=== PATIENT | female | born 1960 | race Caucasian/White ===

== ENCOUNTER 2017-08-16 11:11 | Inpatient (IN) | payer OTHER ==
[2017-08-16] VITALS (7 sets, daily range): BP systolic 74–177; BP diastolic 42–86
[~2017-08-16] VITALS: Ht 162.5 cm; Wt 83.3 kg
--- NOTE | ~2017-08-16 | EKG ---
[place], [place] ELECTROCARDIOGRAM REPORT NAME: NAV WALKER UNIT #: [id number] ROOM: 412 DOCTOR: ALVIN CASTRO,KALEE BIRTHDATE: [birth year] DOS: 08/16/2017 TIME: 1454 hours. IMPRESSION: 1. Sinus rhythm. 2. Normal QT interval. 3. No ischemic changes. KALEE ESQUIVEL MD CM:EKGRPT:ELECTROCARDIOGRAM REPORT 1200 1213 KALEE ESQUIVEL MD
--- NOTE | ~2017-08-16 | EKG ---
[place], [place] ELECTROCARDIOGRAM REPORT NAME: NAV WALKER UNIT #: [id number] ROOM: 412 DOCTOR: ALVIN CASTRO,KALEE BIRTHDATE: [birth year] DOS: 08/16/2017 TIME: 1113 hours IMPRESSION: 1. Sinus rhythm. 2. Nonspecific ST-T changes. 3. Normal QT interval. KALEE ESQUIVEL MD CM:EKGRPT:ELECTROCARDIOGRAM REPORT 1201 1216 KALEE ESQUIVEL MD
--- NOTE | ~2017-08-16 | CON ---
[place], [place] REPORT OF CONSULTATION NAME: NAV WALKER UNIT #: [id number] ROOM: 412 DOCTOR: ALVIN CASTRO,KALEE BIRTHDATE: [birth year] DOS: 08/16/2017 REASON FOR CONSULTATION: Chest pain. CONSULTING PHYSICIAN: Dr. Rabago. HISTORY OF PRESENT ILLNESS: The patient is a 57-year-old patient who came to the Emergency Room with chest pain. She complained of some midsternal pain like a squeezing pain at rest, started about 2 weeks ago. This is more or less constant pain with waxing and waning, but this was not completely resolved except sometimes gets better, but it is there for the last 2 weeks. She denies associated nausea, diaphoresis, or shortness of breath. This pain has no radiation. No dizziness or syncope. This pain did not get any worse with activity. She also complained of occasional facial numbness during her anxiety attack. No palpitations or dizziness. No nausea, vomiting, diarrhea. No headaches. No fever and chills. No cough or hemoptysis. No hematuria or dysuria. His blood pressure medications and Xanax were adjusted by her family physician. REVIEW OF SYSTEMS: Review of the 8 systems negative except as mentioned above. PAST MEDICAL HISTORY: 1. Hypertension. 2. Anxiety. 3. Dyslipidemia. 4. Non-morbid obesity. 5. Dyslipidemia. 6. Overactive bladder. PAST SURGICAL HISTORY: 1. History of breast lump resection. 2. Excision of the right lobe of the thyroid. 3. Tonsillectomy. SOCIAL HISTORY: The patient does not drink alcohol or use illicit drugs, history of tobacco use, but quit smoking about a year and half ago. FAMILY HISTORY: History of strokes in the father, at the age 76. Mother at the age of 51 from scleroderma. ALLERGIES: THE PATIENT IS ALLERGIC TO IODINE which causes severe anaphylaxis, per chart. HOME MEDICATIONS: Reviewed. PHYSICAL EXAMINATION: VITAL SIGNS: Blood pressure 106/56, pulse 82, respiratory rate 18, weight 83 kilos, BMI 31.6. GENERAL: Alert, comfortable, in no acute distress. [place], [place] REPORT OF CONSULTATION NAME: NAV WALKER UNIT #: [id number] ROOM: 412 DOCTOR: ALVIN CASTRO,KALEE BIRTHDATE: [birth year] HEAD AND NECK: Supple, no distended neck veins, no carotid bruit. CHEST: Symmetrical, nontender. LUNGS: Clear to auscultation bilaterally. HEART: Regular rhythm, no S3, no palpable thrills. ABDOMEN: Obese, nontender. Bowel sounds normal. EXTREMITIES: Showed no edema. Distal pulses are palpable. SKIN: Warm and dry. No cyanosis, no clubbing. NEUROLOGIC: The patient is alert, oriented. No focal neurologic deficit. RECTAL: Deferred. GENITOURINARY: Deferred. REVIEW OF THE DIAGNOSTIC TESTS: EKG shows sinus rhythm. CBC and chemistry reviewed. Potassium was 3.1. IMPRESSION: 1. Chest pain, atypical, myocardial infarction ruled out. 2. Mild hypokalemia, which is being replaced, supplemented. 3. Hypertension, stable. 4. Chronic kidney disease. 5. Rule out ____. 6. Non-morbid obesity. RECOMMENDATIONS: 1. She denies any further chest pain. Initial blood pressures and heart rates are stable. 2. She can be discharged home today and recommend outpatient stress test due to her coronary artery disease risk factors. The patient advised to come back to the Emergency Room if she develops recurrent exertional chest pains. Thank you, Dr. Rabago, for asking us to evaluate this patient. KALEE ESQUIVEL MD CM:CONSTR:REPORT OF CONSULTATION 1737 [id number]/16/[id number] interface
[~2017-08-16 11:11] MED LIST: AMOXICILLIN500 MG PO; CELEXA20 MG PO; DAYPRO600 M1 PO; DIFLUCAN150 MG PO; LISINOPRIL20 MG PO; MOTRIN800 MG PO; TOVIAZ4 MG PO; ZOCOR20 MG PO
[2017-08-16 11:39] LABS: BASO % 0.3 % (0.0-1.0); EOS % 0.4 % (1.0-4.0); HEMATOCRIT 37.7 % (37.0-47.0); LYMPH # 2.1 10*3/uL (1.3-4.4); MEAN CELL VOLUME 90.8 fl (81.0-99.0); MEAN CORPUSCULAR HGB 31.3 pg (27.0-31.0); MEAN CORPUSCULAR HGB CONC 34.5 g/dl (33.0-37.0); MEAN PLATELET VOLUME 9.9 fl (9.6-12.3); MONO # 0.5 10*3/uL (0.1-1.0); MONO % 6.2 % (3.0-9.0); PLATELET COUNT AUTOMATED 365 10*3/uL (130-400); RED BLOOD COUNT 4.15 10*6/uL (4.10-5.10); RED CELL DISTRI WIDTH 12.3 % (0-14.5); WHITE BLOOD COUNT 7.6 10*3/uL (4.8-10.8)
--- NOTE | 2017-08-16 11:40 | NUR ---
AUTOMATIC BP 74/53, RIGHT ARM. MANUAL BP 98/64, LEFT ARM. NITRO-BID REMOVED FROM LEFT ARM ORDERED BY .
[2017-08-16 11:48] LABS: ACT PARTIAL THROMBO TIME 22.4 SECONDS (20.8-31.5)
[2017-08-16] MEDS ORDERED: PROZAC40 M1 PO (11:51)
[2017-08-16] MEDS ORDERED: DITROPAN XL5 MG PO (11:52)
[2017-08-16] MEDS ORDERED: NAPROXEN500 MG PO (11:52)
[2017-08-16] MEDS ORDERED: ATIVAN0.5 MG PO (11:54)
[2017-08-16] MEDS ORDERED: HYZAAR 50-12.51 EACH PO (11:55)
[2017-08-16] MEDS ORDERED: TOPAMAX50 MG PO (11:55)
[2017-08-16 11:56] LABS: ALBUMIN 4.2 gm/dl (3.1-4.5); ALKALINE PHOSPHATASE 116 U/L (45-117); BUN 22 mg/dl (7-24); CHLORIDE 102 mmol/L (98-107); CREATININE 1.29 mg/dL (0.55-1.02); POTASSIUM 3.1 mmol/L (3.5-5.1); SGOT/AST 18 IU/L (3-35); SGPT/ALT 25 U/L (12-78); SODIUM 138 mmol/L (136-145); TOTAL PROTEIN 7.5 gm/dL (6.4-8.2)
[2017-08-16 11:58] LABS: TROPONIN I < 0.015 ng/ml (<0.045)
--- NOTE | 2017-08-16 12:00 | NUR ---
PATIENT STATES THAT ATIVAN HAS HELPED HER TO "CALM DOWN AND STOP CRYING." ALSO STATES THAT HER "CHEST AND FACE ARE STILL TINGLING." NOTIFIED.
--- NOTE | 2017-08-16 13:25 | NUR ---
Time: 1324 A 57 year old FEMALE admitted to 4E under services of ALICJA WYMAN DO. Pt. arrived via bed from ER. Chief complaint: CHEST PAIN. CHAI ZAMBRANO
--- NOTE | 2017-08-16 15:01 | NUR ---
DR ESQUIVEL WAS NOTIFIED OF THE NEW CONSULT FOR CHEST PAIN.
--- NOTE | 2017-08-16 17:35 | NUR ---
Discharge instructions reviewed with patient/family. Patient receptive and verbalizes understanding. Follow-up care arranged. Written instructions given to patient/family. JEFRY VANCE
== END 2017-08-16 17:35 | disposition home or self-care (01) | DRG 313 ==
LOC: ED 11:11 → EDHOLD 11:39 → 4E 11:39
PROVIDERS: Emergency Medicine; ADMIT Internal Medicine
DX: R07.89 Other chest pain (principal); E83.41 Hypermagnesemia; E66.8 Other obesity; E87.6 Hypokalemia; E78.5 Hyperlipidemia, unspecified; R73.9 Hyperglycemia, unspecified; N32.81 Overactive bladder; F41.9 Anxiety disorder, unspecified; I12.9 Hypertensive chronic kidney disease with stage 1 through stage 4 chronic kidney disease, or unspecified chronic kidney disease; G43.909 Migraine, unspecified, not intractable, without status migrainosus; N18.9 Chronic kidney disease, unspecified; Z68.31 Body mass index [BMI] 31.0-31.9, adult; Z91.041 Radiographic dye allergy status; Z79.899 Other long term (current) drug therapy; Z87.01 Personal history of pneumonia (recurrent); Z82.3 Family history of stroke; Z83.3 Family history of diabetes mellitus; Z98.51 Tubal ligation status; Z95.1 Presence of aortocoronary bypass graft

== ENCOUNTER 2017-11-21 10:56 | Inpatient (IN) | payer OTHER ==
[~2017-11-21] VITALS: Ht 162.6 cm
--- NOTE | ~2017-11-21 | EKG ---
[place], [place] ELECTROCARDIOGRAM REPORT NAME: NAV WALKER UNIT #: [id number] ROOM: [facility] DOCTOR: ALVIN CASTRO,KALEE BIRTHDATE: [birth year] DOS: 11/21/2017 TIME: 1124 hours IMPRESSION: 1. Sinus rhythm. 2. Borderline left atrial enlargement. 3. Low voltage in the limb leads. 4. Normal QT interval. KALEE ESQUIVEL MD CM:EKGRPT:ELECTROCARDIOGRAM REPORT 0845 0921 KALEE ESQUIVEL MD
[~2017-11-21 10:56] MED LIST changes: +ATIVAN0.5 MG PO; +DITROPAN XL5 MG PO; +HYZAAR 50-12.51 EACH PO; +NAPROXEN500 MG PO; +PROZAC40 M1 PO; +TOPAMAX50 MG PO
[2017-11-21 11:09] VITALS: BP 140/80
[2017-11-21 11:33] LABS: BASO % 0.5 % (0.0-1.0); EOS # 0.1 10*3/uL (0.0-0.4); EOS % 1.2 % (1.0-4.0); HEMATOCRIT 37.3 % (37.0-47.0); LYMPH # 1.6 10*3/uL (1.3-4.4); LYMPH % 27.9 % (27.0-41.0); MEAN CELL VOLUME 91.9 fl (81.0-99.0); MEAN CORPUSCULAR HGB 29.6 pg (27.0-31.0); MEAN CORPUSCULAR HGB CONC 32.2 g/dl (33.0-37.0); MONO # 0.4 10*3/uL (0.1-1.0); MONO % 7.1 % (3.0-9.0); NEUT # 3.6 10*3/uL (2.3-7.9); NEUT % 63.1 % (47.0-73.0); PLATELET COUNT AUTOMATED 313 10*3/uL (130-400); RED BLOOD COUNT 4.06 10*6/uL (4.10-5.10); RED CELL DISTRI WIDTH 13.5 % (0-14.5); WHITE BLOOD COUNT 5.7 10*3/uL (4.8-10.8)
[2017-11-21 11:42] LABS: ACT PARTIAL THROMBO TIME 22.5 SECONDS (20.8-31.5)
[2017-11-21 11:47] LABS: ALBUMIN 3.7 gm/dl (3.1-4.5); ALKALINE PHOSPHATASE 89 U/L (45-117); BUN 17 mg/dl (7-24); CHLORIDE 103 mmol/L (98-107); CREATININE 0.82 mg/dL (0.55-1.02); LIPASE 205 U/L (73-393); POTASSIUM 2.8 mmol/L (3.5-5.1); SGOT/AST 20 IU/L (3-35); SGPT/ALT 25 U/L (12-78); SODIUM 138 mmol/L (136-145); TOTAL PROTEIN 7.1 gm/dL (6.4-8.2)
[2017-11-21 11:48] LABS: TROPONIN I < 0.015 ng/ml (<0.045)
[2017-11-21 12:57] VITALS: BP 134/80
[2017-11-21] MEDS ORDERED: ASPIRIN ADULT L81 M1 PO (13:15)
[2017-11-21 13:38] VITALS: BP 122/68
[2017-11-21 13:45] VITALS: BP 122/68
[2017-11-21] MEDS ORDERED: OMEPRAZOLE MAGN20 M1 PO (13:47)
[2017-11-21 15:23] LABS: BILIRUBIN NEGATIVE (NEGATIVE); BLOOD NEGATIVE (NEGATIVE); CLARITY CLEAR (CLEAR); COLOR YELLOW (YELLOW); GLUCOSE NEGATIVE (NEGATIVE); KETONE NEGATIVE (NEGATIVE); LEUKO ESTERASE 3+ (NEGATIVE); NITRITE NEGATIVE (NEGATIVE); PH 7.5 (5.0-9.0); UROBILINOGEN 0.2 E.U./dl (0.2-1.0)
[2017-11-21 15:58] LABS: BACTERIA 3+; EPITHELIAL CELLS 15-20; RBC 0-2 rbc/hpf (0-2); WBC 21-30 wbc/hpf (0-5)
[2017-11-21 16:00] VITALS: BP 119/60
[2017-11-21 20:00] VITALS: BP 107/90
[2017-11-22] VITALS: BP 103/53
[2017-11-22 06:34] LABS: HEMATOCRIT 35.3 % (37.0-47.0); HEMOGLOBIN 11.2 g/dl (12.0-16.0); MEAN CELL VOLUME 94.4 fl (81.0-99.0); MEAN CORPUSCULAR HGB 29.9 pg (27.0-31.0); MEAN CORPUSCULAR HGB CONC 31.7 g/dl (33.0-37.0); MEAN PLATELET VOLUME 10.2 fl (9.6-12.3); PLATELET COUNT AUTOMATED 284 10*3/uL (130-400); RED BLOOD COUNT 3.74 10*6/uL (4.10-5.10); RED CELL DISTRI WIDTH 13.8 % (0-14.5); WHITE BLOOD COUNT 5.5 10*3/uL (4.8-10.8)
[2017-11-22 06:52] LABS: ALBUMIN 3.1 gm/dl (3.1-4.5); ALKALINE PHOSPHATASE 80 U/L (45-117); BUN 16 mg/dl (7-24); CHLORIDE 107 mmol/L (98-107); CHOLESTEROL 172 mg/dL (<200); CREATININE 0.76 mg/dL (0.55-1.02); FREE T4 1.24 ng/dl (0.76-1.46); HDL CHOLESTEROL 47 mg/dl (40-60); LDL CHOLESTEROL 91 mg/dL (9-159); PHOSPHOROUS 3.2 mg/dL (2.5-4.9); POTASSIUM 3.5 mmol/L (3.5-5.1); SGOT/AST 15 IU/L (3-35); SGPT/ALT 25 U/L (12-78); SODIUM 141 mmol/L (136-145); TOTAL PROTEIN 6.4 gm/dL (6.4-8.2); TRIGLYCERIDES 169 mg/dl (<150); VLDL CHOLESTEROL 34 mg/dL (6-40)
[2017-11-22 07:58] LABS: VITAMIN D, 25-HYDROXY 13.8 ng/mL (30-100)
[2017-11-22 08:00] VITALS: BP 108/50
[2017-11-22] MEDS ORDERED: CIPRO500 MG PO (10:11)
[2017-11-22] MEDS ORDERED: LOSARTAN POTASS50 M1 PO (10:11)
== END 2017-11-22 11:28 | disposition home or self-care (01) | DRG 641 ==
LOC: ED 10:56 → EDHOLD 12:33 → 4E 12:42
PROVIDERS: Emergency Medicine; Family Medicine
DX: E87.6 Hypokalemia (principal); E83.41 Hypermagnesemia; E83.51 Hypocalcemia; E78.5 Hyperlipidemia, unspecified; I10 Essential (primary) hypertension; F41.9 Anxiety disorder, unspecified; R35.0 Frequency of micturition; N32.81 Overactive bladder; R73.9 Hyperglycemia, unspecified; G43.909 Migraine, unspecified, not intractable, without status migrainosus; Z98.51 Tubal ligation status; Z88.2 Allergy status to sulfonamides; Z79.899 Other long term (current) drug therapy; Z79.82 Long term (current) use of aspirin

== ENCOUNTER 2019-09-16 08:40 | Emergency (ER) | payer OTHER ==
[~2019-09-16] VITALS: Ht 162.5 cm; Wt 74.8 kg
[~2019-09-16 08:40] MED LIST changes: +ASPIRIN ADULT L81 M1 PO; +CIPRO500 MG PO; +LOSARTAN POTASS50 M1 PO; +OMEPRAZOLE MAGN20 M1 PO
[2019-09-16 09:10] LABS: BASO % 0.4 % (0.0-1.0); EOS % 0.3 % (1.0-4.0); HEMATOCRIT 40.2 % (37.0-47.0); HEMOGLOBIN 13.1 g/dl (12.0-16.0); LYMPH # 1.6 10*3/uL (1.3-4.4); LYMPH % 14.3 % (27.0-41.0); MEAN CELL VOLUME 93.1 fl (81.0-99.0); MEAN CORPUSCULAR HGB 30.3 pg (27.0-31.0); MEAN CORPUSCULAR HGB CONC 32.6 g/dl (33.0-37.0); MEAN PLATELET VOLUME 9.8 fl (9.6-12.3); NEUT # 8.4 10*3/uL (2.3-7.9); NEUT % 75.5 % (47.0-73.0); PLATELET COUNT AUTOMATED 664 10*3/uL (130-400); RED BLOOD COUNT 4.32 10*6/uL (4.10-5.10); RED CELL DISTRI WIDTH 11.9 % (0-14.5); WHITE BLOOD COUNT 11.1 10*3/uL (4.8-10.8)
[2019-09-16 09:21] LABS: ACT PARTIAL THROMBO TIME 51.4 SECONDS (20.0-32.1); INTERNATIONAL NORM RATIO 1.1 (2.0-3.5)
[2019-09-16 09:23] LABS: ALBUMIN 2.9 gm/dl (3.1-4.5); CREATININE 1.18 mg/dL (0.55-1.02); POTASSIUM 3.4 mmol/L (3.5-5.1); TOTAL PROTEIN 7.8 gm/dL (6.4-8.2)
[2019-09-16 12:51] LABS: BILIRUBIN 1+ (NEGATIVE); BLOOD 1+ (NEGATIVE); CLARITY SL CLOUDY (CLEAR); COLOR YELLOW (YELLOW); GLUCOSE NEGATIVE (NEGATIVE); KETONE TRACE (NEGATIVE); LEUKO ESTERASE 1+ (NEGATIVE); NITRITE NEGATIVE (NEGATIVE); SPECIFIC GRAVITY 1.015 (1.005-1.030); UROBILINOGEN 0.2 E.U./dl (0.2-1.0)
[2019-09-16 13:13] LABS: WBC TNTC wbc/hpf (0-5)
[2019-09-16 13:27] LABS: BACTERIA 3+
[2019-09-16 13:28] LABS: RBC 16-20 rbc/hpf (0-2)
[2019-09-16] MEDS ORDERED: SEPTDS PO (13:31)
[2019-09-16] MEDS ORDERED: PYRIDIUM200 M1 PO (13:31)
== END 2019-09-16 13:41 | disposition home or self-care (01) ==
LOC: ED 08:40
PROVIDERS: Emergency Medicine
DX: N39.0 Urinary tract infection, site not specified (principal); K64.5 Perianal venous thrombosis; D47.3 Essential (hemorrhagic) thrombocythemia; I10 Essential (primary) hypertension; E78.00 Pure hypercholesterolemia, unspecified; F41.9 Anxiety disorder, unspecified; K21.9 Gastro-esophageal reflux disease without esophagitis; F17.200 Nicotine dependence, unspecified, uncomplicated; Z91.041 Radiographic dye allergy status; Z91.013 Allergy to seafood; Z79.899 Other long term (current) drug therapy; Z79.82 Long term (current) use of aspirin

== ENCOUNTER → 2020-06-18 | Outpatient (CLI) | payer OTHER ==
[~2020-06-18] MED LIST changes: +PYRIDIUM200 M1 PO; +SEPTDS PO
[2020-06-19 16:09] LABS: ATYPICAL PANCA <1:20 titer (Neg:<1:20)
[2020-06-20 13:09] LABS: SACCHAROMYCES CEREVISIAE IGA <20.0 Units (0.0-24.9)
== END | disposition home or self-care (01) ==
LOC: LAB 08:24
PROVIDERS: ATTEND Internal Medicine Gastroenterology
DX: K52.9 Noninfective gastroenteritis and colitis, unspecified (principal)

== ENCOUNTER → 2020-09-10 | Outpatient (CLI) | payer OTHER ==
[~2020-09-10] MED LIST changes: +PERCOCET 5-3251 EACH PO
== END | disposition home or self-care (01) ==
LOC: COVID19 16:15
PROVIDERS: ATTEND Internal Medicine Gastroenterology
DX: Z01.818 Encounter for other preprocedural examination (principal); Z20.822 Contact with and (suspected) exposure to COVID-19

== ENCOUNTER 2020-11-13 14:33 | Emergency (ER) | payer OTHER ==
[~2020-11-13] VITALS: Ht 162.5 cm; Wt 88.5 kg
[~2020-11-13 14:33] MED LIST changes: -PERCOCET 5-3251 EACH PO
[2020-11-13] MEDS ORDERED: PERCOCET 5-3251 EACH PO (16:47)
== END 2020-11-13 17:09 | disposition home or self-care (01) ==
LOC: ED 14:33
DX: S52.501A Unspecified fracture of the lower end of right radius, initial encounter for closed fracture (principal); S80.211A Abrasion, right knee, initial encounter; F17.290 Nicotine dependence, other tobacco product, uncomplicated; Z91.041 Radiographic dye allergy status; Z91.013 Allergy to seafood; Z79.899 Other long term (current) drug therapy; Z79.2 Long term (current) use of antibiotics; Z79.82 Long term (current) use of aspirin; Z90.89 Acquired absence of other organs; Z98.51 Tubal ligation status; W18.09XA Striking against other object with subsequent fall, initial encounter; Y93.89 Activity, other specified; Y92.488 Other paved roadways as the place of occurrence of the external cause; Y99.8 Other external cause status

== ENCOUNTER → 2021-07-17 | Outpatient (CLI) | payer OTHER ==
[~2021-07-17] MED LIST changes: +PERCOCET 5-3251 EACH PO
== END | disposition home or self-care (01) ==
LOC: LAB 07:18
PROVIDERS: ATTEND Nurse Practitioner Family
DX: K52.9 Noninfective gastroenteritis and colitis, unspecified (principal)

== ENCOUNTER 2021-07-31 15:24 | Emergency (ER) | payer OTHER ==
[~2021-07-31] VITALS: Ht 162.5 cm; Wt 78.5 kg
[2021-07-31 16:19] LABS: BASO % 0.2 % (0.0-1.0); HEMATOCRIT 43.4 % (37.0-47.0); LYMPH # 1.1 10*3/uL (1.3-4.4); LYMPH % 8.5 % (27.0-41.0); MEAN CELL VOLUME 100.9 fl (81.0-99.0); MEAN CORPUSCULAR HGB 32.8 pg (27.0-31.0); MEAN CORPUSCULAR HGB CONC 32.5 g/dl (33.0-37.0); MEAN PLATELET VOLUME 10.3 fl (9.6-12.3); MONO # 0.8 10*3/uL (0.1-1.0); MONO % 5.7 % (3.0-9.0); NEUT # 11.3 10*3/uL (2.3-7.9); NEUT % 85.2 % (47.0-73.0); PLATELET COUNT AUTOMATED 342 10*3/uL (130-400); RED CELL DISTRI WIDTH 12.3 % (0-14.5); WHITE BLOOD COUNT 13.2 10*3/uL (4.8-10.8)
[2021-07-31 16:45] LABS: ALBUMIN 3.4 gm/dl (3.1-4.5); CREATININE 1.13 mg/dL (0.55-1.02); POTASSIUM 3.7 mmol/L (3.5-5.1); TOTAL PROTEIN 7.4 gm/dL (6.4-8.2)
[2021-07-31 17:01] LABS: BILIRUBIN Negative (Negative); BLOOD 3+ (Negative); CLARITY Cloudy (Clear); COLOR Yellow (Yellow); GLUCOSE Negative (Negative); KETONE Trace (Negative); LEUKO ESTERASE 2+ (Negative); NITRITE Negative (Negative); UROBILINOGEN 0.2 E.U./dl (0.0-1.0)
[2021-07-31 17:34] LABS: BACTERIA 2+; EPITHELIAL CELLS 41-50; RBC TNTC rbc/hpf (0-2); WBC TNTC wbc/hpf (0-5)
== END 2021-07-31 22:11 | disposition short-term general hospital (02) ==
LOC: ED 15:24
PROVIDERS: Physician Assistant
DX: N13.2 Hydronephrosis with renal and ureteral calculous obstruction (principal); Z91.041 Radiographic dye allergy status; Z91.013 Allergy to seafood; Z79.899 Other long term (current) drug therapy; Z79.82 Long term (current) use of aspirin

== ENCOUNTER → 2021-11-25 | Outpatient (CLI) | payer OTHER | END | disposition home or self-care (01) | LOC: LAB 07:20 | PROVIDERS: ATTEND Internal Medicine Gastroenterology | DX: K50.10 Crohn's disease of large intestine without complications (principal) ==

== ENCOUNTER 2022-07-16 14:42 | Inpatient (IN) | payer OTHER ==
[~2022-07-16] VITALS: Ht 162.5 cm; Wt 66.9 kg
[2022-07-16 15:01] VITALS: BP 112/60
[2022-07-16 15:20] LABS: BASO # 0.1 10*3/uL (0.0-0.1); BASO % 0.5 % (0.0-1.0); EOS # 0.1 10*3/uL (0.0-0.4); EOS % 0.9 % (1.0-4.0); HEMATOCRIT 41.7 % (37.0-47.0); LYMPH # 2.1 10*3/uL (1.3-4.4); LYMPH % 19.6 % (27.0-41.0); MEAN CELL VOLUME 97.4 fl (81.0-99.0); MEAN CORPUSCULAR HGB 31.8 pg (27.0-31.0); MEAN CORPUSCULAR HGB CONC 32.6 g/dl (33.0-37.0); MEAN PLATELET VOLUME 9.9 fl (9.6-12.3); MONO # 0.7 10*3/uL (0.1-1.0); MONO % 6.6 % (3.0-9.0); NEUT # 7.7 10*3/uL (2.3-7.9); NEUT % 72.2 % (47.0-73.0); PLATELET COUNT AUTOMATED 400 10*3/uL (130-400); RED BLOOD COUNT 4.28 10*6/uL (4.10-5.10); RED CELL DISTRI WIDTH 12.6 % (0-14.5); WHITE BLOOD COUNT 10.6 10*3/uL (4.8-10.8)
[2022-07-16 15:34] LABS: ACT PARTIAL THROMBO TIME 30.8 SECONDS (20.0-32.1)
[2022-07-16 15:36] LABS: ALKALINE PHOSPHATASE 53 U/L (45-117); BUN 15 mg/dl (7-24); CHLORIDE 112 mmol/L (98-107); CREATININE 0.91 mg/dL (0.55-1.02); LIPASE 148 U/L (73-393); POTASSIUM 3.6 mmol/L (3.5-5.1); SGPT/ALT 48 U/L (12-78); SODIUM 140 mmol/L (136-145); TOTAL PROTEIN 7.2 gm/dL (6.4-8.2)
[2022-07-16 16:40] VITALS: BP 114/70
[2022-07-16 17:58] VITALS: BP 118/70
[2022-07-16 18:00] VITALS: BP 131/55
[2022-07-16] MEDS ORDERED: BENICAR20 MG PO (18:48)
[2022-07-16] MEDS ORDERED: FENOFIBRATE160 MG PO (18:51)
[2022-07-16] MEDS ORDERED: BUDESONIDE EC3 MG PO (18:51)
[2022-07-16] MEDS ORDERED: REMERON15 M2 PO (18:52)
[2022-07-16] MEDS ORDERED: ZOLOFT100 MG PO (18:52)
[2022-07-16] MEDS ORDERED: WELLBUTRIN SR150 MG PO (18:52)
[2022-07-16] MEDS ORDERED: NEXIUM40 MG PO (18:53)
[2022-07-16 20:00] VITALS: BP 91/62
[2022-07-17] VITALS: BP 90/50
[2022-07-17 05:00] LABS: BUN 16 mg/dl (7-24); CHLORIDE 111 mmol/L (98-107); CHOLESTEROL 162 mg/dL (<200); CREATININE 0.84 mg/dL (0.55-1.02); POTASSIUM 3.4 mmol/L (3.5-5.1); SGPT/ALT 261 U/L (12-78); SODIUM 140 mmol/L (136-145)
[2022-07-17 05:02] LABS: ALKALINE PHOSPHATASE 75 U/L (45-117); FREE T4 1.33 ng/dl (0.76-1.46); LDL CHOLESTEROL 80 mg/dL (9-159); TOTAL PROTEIN 6.4 gm/dL (6.4-8.2); TRIGLYCERIDES 225 mg/dl (<150)
[2022-07-17 05:05] LABS: THYROID STIM HORMONE (HS) 0.854 uIU/ml (0.358-4.75)
[2022-07-17 06:14] LABS: BASO % 0.4 % (0.0-1.0); EOS # 0.1 10*3/uL (0.0-0.4); EOS % 1.3 % (1.0-4.0); HEMATOCRIT 37.4 % (37.0-47.0); LYMPH # 1.7 10*3/uL (1.3-4.4); LYMPH % 30.2 % (27.0-41.0); MEAN CELL VOLUME 96.1 fl (81.0-99.0); MEAN CORPUSCULAR HGB 31.4 pg (27.0-31.0); MEAN CORPUSCULAR HGB CONC 32.6 g/dl (33.0-37.0); MEAN PLATELET VOLUME 10.3 fl (9.6-12.3); MONO # 0.4 10*3/uL (0.1-1.0); MONO % 7.5 % (3.0-9.0); NEUT # 3.4 10*3/uL (2.3-7.9); NEUT % 60.2 % (47.0-73.0); PLATELET COUNT AUTOMATED 325 10*3/uL (130-400); RED BLOOD COUNT 3.89 10*6/uL (4.10-5.10); RED CELL DISTRI WIDTH 12.6 % (0-14.5); WHITE BLOOD COUNT 5.6 10*3/uL (4.8-10.8)
[2022-07-17 06:42] VITALS: BP 110/64
[2022-07-17 08:00] VITALS: BP 101/51
[2022-07-17 12:00] VITALS: BP 117/38
== END 2022-07-17 15:02 | disposition home or self-care (01) | DRG 313 ==
LOC: ED 14:42 → EDHOLD 17:07 → 5E 17:56
PROVIDERS: Emergency Medicine; Student in an Organized Health Care Education/Training Program; ADMIT Internal Medicine; ATTEND Internal Medicine
DX: R07.9 Chest pain, unspecified (principal); K50.90 Crohn's disease, unspecified, without complications; E44.1 Mild protein-calorie malnutrition; E89.0 Postprocedural hypothyroidism; I10 Essential (primary) hypertension; E78.5 Hyperlipidemia, unspecified; E66.9 Obesity, unspecified; F41.9 Anxiety disorder, unspecified; E87.8 Other disorders of electrolyte and fluid balance, not elsewhere classified; E11.65 Type 2 diabetes mellitus with hyperglycemia; E83.41 Hypermagnesemia; R74.01 Elevation of levels of liver transaminase levels; Z68.25 Body mass index [BMI] 25.0-25.9, adult; Z91.041 Radiographic dye allergy status; Z91.013 Allergy to seafood; Z98.51 Tubal ligation status; Z87.891 Personal history of nicotine dependence

== ENCOUNTER 2022-08-12 16:58 | Emergency (ER) | payer OTHER ==
[~2022-08-12] VITALS: Wt 66.2 kg
[~2022-08-12 16:58] MED LIST changes: +BENICAR20 MG PO; +BUDESONIDE EC3 MG PO; +FENOFIBRATE160 MG PO; +NEXIUM40 MG PO; +REMERON15 M2 PO; +WELLBUTRIN SR150 MG PO; +ZOLOFT100 MG PO
[2022-08-12 20:12] LABS: BASO % 0.4 % (0.0-1.0); EOS % 0.2 % (1.0-4.0); HEMATOCRIT 37.9 % (37.0-47.0); LYMPH # 1.1 10*3/uL (1.3-4.4); LYMPH % 19.3 % (27.0-41.0); MEAN CELL VOLUME 91.3 fl (81.0-99.0); MEAN CORPUSCULAR HGB 31.6 pg (27.0-31.0); MEAN CORPUSCULAR HGB CONC 34.6 g/dl (33.0-37.0); MEAN PLATELET VOLUME 9.8 fl (9.6-12.3); MONO # 0.6 10*3/uL (0.1-1.0); MONO % 9.7 % (3.0-9.0); PLATELET COUNT AUTOMATED 388 10*3/uL (130-400); RED BLOOD COUNT 4.15 10*6/uL (4.10-5.10); RED CELL DISTRI WIDTH 12.8 % (0-14.5); WHITE BLOOD COUNT 5.7 10*3/uL (4.8-10.8)
[2022-08-12 20:27] LABS: ALKALINE PHOSPHATASE 70 U/L (46-116); BUN 24 mg/dl (9-23); CHLORIDE 98 mmol/L (98-107); CREATININE 0.73 mg/dL (0.55-1.02); LIPASE 22 U/L (12-53); POTASSIUM 2.6 mmol/L (3.4-5.1); SGPT/ALT 52 U/L (10-49); SODIUM 136 mmol/L (136-145); TOTAL PROTEIN 6.2 gm/dL (6.0-8.0)
[2022-08-12 23:36] LABS: BILIRUBIN 3+ (Negative); BLOOD 1+ (Negative); CLARITY Cloudy (Clear); COLOR Dark Yellow (Yellow); GLUCOSE Negative (Negative); KETONE 1+ (Negative); LEUKO ESTERASE 2+ (Negative); NITRITE Positive (Negative)
[2022-08-12 23:45] LABS: BACTERIA 2+; FINE GRANULAR CAST 0-2; WBC 31-40 wbc/hpf (0-5)
[2022-08-13] MEDS ORDERED: ONDANSETRON4 MG SL (00:20)
[2022-08-13] MEDS ORDERED: CIPRO500 MG PO (00:20)
== END 2022-08-13 01:33 | disposition home or self-care (01) ==
LOC: ED 16:58
PROVIDERS: Physician Assistant
DX: N39.0 Urinary tract infection, site not specified (principal); N17.9 Acute kidney failure, unspecified; E44.0 Moderate protein-calorie malnutrition; E87.6 Hypokalemia; R79.89 Other specified abnormal findings of blood chemistry; Z91.041 Radiographic dye allergy status; Z91.013 Allergy to seafood; Z79.899 Other long term (current) drug therapy; Z90.89 Acquired absence of other organs; Z98.51 Tubal ligation status; Z98.890 Other specified postprocedural states

== ENCOUNTER → 2022-11-05 | Outpatient (CLI) | payer OTHER ==
[~2022-11-05] MED LIST changes: +ONDANSETRON4 MG SL
[2022-11-05 09:36] LABS: BASO % 0.5 % (0.0-1.0); EOS # 0.2 10*3/uL (0.0-0.4); EOS % 2.6 % (1.0-4.0); HEMATOCRIT 42.5 % (37.0-47.0); LYMPH # 2.1 10*3/uL (1.3-4.4); LYMPH % 33.2 % (27.0-41.0); MEAN CELL VOLUME 99.3 fl (81.0-99.0); MEAN CORPUSCULAR HGB 31.1 pg (27.0-31.0); MEAN CORPUSCULAR HGB CONC 31.3 g/dl (33.0-37.0); MEAN PLATELET VOLUME 10.3 fl (9.6-12.3); MONO # 0.4 10*3/uL (0.1-1.0); MONO % 6.4 % (3.0-9.0); NEUT # 3.7 10*3/uL (2.3-7.9); NEUT % 57.1 % (47.0-73.0); PLATELET COUNT AUTOMATED 335 10*3/uL (130-400); RED BLOOD COUNT 4.28 10*6/uL (4.10-5.10); RED CELL DISTRI WIDTH 12.8 % (0-14.5); WHITE BLOOD COUNT 6.4 10*3/uL (4.8-10.8)
[2022-11-05 09:51] LABS: ALKALINE PHOSPHATASE 42 U/L (46-116); BUN 17 mg/dl (9-23); CHLORIDE 113 mmol/L (98-107); POTASSIUM 3.7 mmol/L (3.4-5.1); SGPT/ALT 11 U/L (10-49); TOTAL PROTEIN 6.8 gm/dL (6.0-8.0)
[2022-11-06 05:07] LABS: HEPATITIS A AB, TOTAL Negative (Negative); HEPATITIS B SURFACE AB Non Reactive (.); HEPATITIS B SURFACE AG Negative (Negative)
[2022-11-07 14:08] LABS: TB1 Ag VALUE 0.05 IU/mL (.)
== END | disposition home or self-care (01) ==
LOC: LAB 08:15
PROVIDERS: ATTEND Internal Medicine Gastroenterology
DX: K50.10 Crohn's disease of large intestine without complications (principal); M47.814 Spondylosis without myelopathy or radiculopathy, thoracic region; I70.0 Atherosclerosis of aorta